=== PATIENT | female | born 1980 | race Caucasian/White ===

== ENCOUNTER 2017-01-07 23:49 | Emergency (ER) | payer OTHER ==
[~2017-01-07] VITALS: Ht 170.2 cm; Wt 129.8 kg
[~2017-01-07 23:49] MED LIST: ANAPROX DS550 M1 PO; AZO STANDARD95 MG PO; BACTRIM DS TAB1 EACH PO; CIPRO500 MG PO; CYSTEX TABLET1 EAC1 PO; FLEXERIL10 MG PO; HYDROCODON-ACE1 EAC7 PO; KEFLEX500 MG PO; MOTRIN IB200 MG PO; MOTRIN800 MG PO; NAPROSYN500 MG PO; NORCO 5/3251 TABLET PO; PERCOCET 5/31 TABLET PO; PYRIDIUM100 MG PO; SYNTHROID50 MCG PO; ULTRAM50 MG PO; ZOFRAN ODT8 MG PO
[2017-01-08] MEDS ORDERED: TOBREX5 ML LEFT EYE (01:10)
[2017-01-08] MEDS ORDERED: AUGMENTIN875 MG PO (01:10)
[2017-01-08] MEDS ORDERED: MOTRIN800 MG PO (01:10)
[2017-01-08] MEDS ORDERED: NORCO 5/3251 TABLET PO (01:10)
[2017-01-08 01:28] VITALS: BP 124/95
== END 2017-01-08 01:29 | disposition home or self-care (01) ==
LOC: EME 23:49
DX: L03.213 Periorbital cellulitis (principal); H10.9 Unspecified conjunctivitis; F17.200 Nicotine dependence, unspecified, uncomplicated
CPT/HCPCS: 99281; 99283

== ENCOUNTER 2017-01-11 22:19 | Inpatient (IN) | payer OTHER ==
[~2017-01-11] VITALS: Ht 170.2 cm; Wt 130.8 kg
[~2017-01-11 22:19] MED LIST changes: +AUGMENTIN875 MG PO; +TOBREX5 ML LEFT EYE
[2017-01-12 01:30] LABS: EOSINOPHIL (%) 2.6 % (0-5); EOSINOPHIL COUNT 0.2 K/uL (0-0.3); HEMATOCRIT 41.9 % (36.0-46.0); IMMATURE GRANULOCYTE (%) 0.6 % (0.0-0.7); INSTRUMENT ABS NEUTROPHIL CT 3.2 K/uL; LYMPHOCYTE COUNT 2.6 K/uL (1.0-2.8); MCH 28.9 PG (29.0-34.0); MCHC 32.5 G/DL (30.0-36.0); MONOCYTE (%) 7.1 % (3-12); MONOCYTE COUNT 0.5 K/uL (0-0.8); NEUTROPHIL COUNT 3.2 K/uL (1.8-6.4); PLATELET COUNT 243 K/uL (156-360); RBC DIS.WIDTH-CV 13.5 % (11.8-14.6); RBC DIS.WIDTH-SD 43.9 % (39-53); RED BLOOD COUNT 4.71 M/uL (3.80-5.20); WHITE BLOOD COUNT 6.5 K/uL (4.1-10.2)
[2017-01-12 01:40] LABS: CHLORIDE 108 mEq/L (99-109); POTASSIUM 3.9 mEq/L (3.7-5.4); SODIUM 141 mEq/L (136-147)
[2017-01-12 01:42] LABS: GLUCOSE 85 mg/dL (70-99)
[2017-01-12 01:43] LABS: ANION GAP 11 MEQ/L (2-14)
[2017-01-12 01:46] LABS: GFR ESTIMATE (CALCULATED) > 59 mL/min/
[2017-01-12 01:47] LABS: UREA NITROGEN (BUN) 13 mg/dL (9-23)
[2017-01-12] MEDS ORDERED: PROZAC20 MG PO (09:39)
[2017-01-12] MEDS ORDERED: CLONIDINE HCL0.1 MG PO (09:39)
[2017-01-12 11:15] VITALS: BP 111/70
[2017-01-12 15:37] VITALS: BP 101/55
[2017-01-12 20:00] VITALS: BP 106/63
[2017-01-12 23:42] VITALS: BP 112/74
[2017-01-13 04:47] VITALS: BP 118/74
[2017-01-13 05:25] LABS: HEMATOCRIT 40.2 % (36.0-46.0); MCH 28.7 PG (29.0-34.0); MCHC 32.1 G/DL (30.0-36.0); MCV 89.5 FL (83-99); MEAN PLAT.VOLUME 9.9 uM^3 (9.5-12.4); PLATELET COUNT 206 K/uL (156-360); RBC DIS.WIDTH-CV 13.4 % (11.8-14.6); RBC DIS.WIDTH-SD 44.2 % (39-53); RED BLOOD COUNT 4.49 M/uL (3.80-5.20); WHITE BLOOD COUNT 5.1 K/uL (4.1-10.2)
[2017-01-13 05:50] LABS: ALKALINE PHOSPHATASE 47 IU/L (3-129); ANION GAP 6 MEQ/L (2-14); CHLORIDE 107 MEQ/L (99-109); GFR ESTIMATE (CALCULATED) > 59 mL/min/; GLUCOSE 89 mg/dL (70-99); POTASSIUM 4.1 MEQ/L (3.7-5.4); SAMPLE HEMOLYSIS CHECK 0; SAMPLE ICTERIC CHECK 0; SAMPLE LIPEMIA CHECK 0; SODIUM 141 MEQ/L (136-147); TOTAL BILIRUBIN 0.3 MG/DL (0.0-1.0); UREA NITROGEN (BUN) 10 mg/dL (9-23)
[2017-01-13 07:25] VITALS: BP 127/85
[2017-01-13 11:21] VITALS: BP 111/76
[2017-01-13 17:42] VITALS: BP 120/76
[2017-01-13 19:52] VITALS: BP 137/71
[2017-01-13 23:15] VITALS: BP 131/81
[2017-01-14 03:40] VITALS: BP 132/80
[2017-01-14 06:48] LABS: HEMATOCRIT 42.1 % (36.0-46.0); MCH 28.7 PG (29.0-34.0); MCHC 32.3 G/DL (30.0-36.0); MCV 88.8 FL (83-99); MEAN PLAT.VOLUME 9.8 uM^3 (9.5-12.4); PLATELET COUNT 202 K/uL (156-360); RBC DIS.WIDTH-CV 13.2 % (11.8-14.6); RED BLOOD COUNT 4.74 M/uL (3.80-5.20); WHITE BLOOD COUNT 4.6 K/uL (4.1-10.2)
[2017-01-14 07:11] LABS: ANION GAP 6 MEQ/L (2-14); CHLORIDE 106 MEQ/L (99-109); GFR ESTIMATE (CALCULATED) > 59 mL/min/; GLUCOSE 85 mg/dL (70-99); MAGNESIUM 2.1 mg/dl (1.3-2.7); POTASSIUM 3.7 MEQ/L (3.7-5.4); SAMPLE HEMOLYSIS CHECK 0; SAMPLE ICTERIC CHECK 0; SAMPLE LIPEMIA CHECK 0; SODIUM 139 MEQ/L (136-147); UREA NITROGEN (BUN) 9 mg/dL (9-23)
[2017-01-14 07:48] VITALS: BP 113/59
[2017-01-14 16:43] VITALS: BP 108/58
[2017-01-14 20:12] VITALS: BP 119/85
[2017-01-15] VITALS: BP 121/85
[2017-01-15 08:05] VITALS: BP 126/73
[2017-01-15] MEDS ORDERED: ENDOCET 5-3251 EACH PO (13:57)
[2017-01-15] MEDS ORDERED: NICOTINE PATCH1 EACH TD (13:57)
[2017-01-15] MEDS ORDERED: LOTEMAX5 ML BOTH EYES (13:57)
[2017-01-15] MEDS ORDERED: TRAMADOL HCL50 MG PO (13:57)
== END 2017-01-15 14:24 | disposition home or self-care (01) | DRG 603 ==
LOC: EME 22:19 → EDOF 01-12 05:33 → ENRESERV 01-12 05:36 → CANRESERV 01-12 06:12 → EDOF 01-12 06:29 → ENRESERV 01-12 06:31 → 4EAST 01-12 11:04 → ENRESERV 01-13 15:50 → 2EAST 01-13 17:31
PROVIDERS: Emergency Medicine; Internal Medicine; Physician Assistant
DX: L03.213 Periorbital cellulitis (principal); I95.9 Hypotension, unspecified; B30.1 Conjunctivitis due to adenovirus; T36.8X5A Adverse effect of other systemic antibiotics, initial encounter; J32.0 Chronic maxillary sinusitis; F32.9 Major depressive disorder, single episode, unspecified; F17.210 Nicotine dependence, cigarettes, uncomplicated; Z87.440 Personal history of urinary (tract) infections; Z87.442 Personal history of urinary calculi
CPT/HCPCS: 70480; 70481; 80048; 80053; 83605; 83735; 85025; 85027; 87040; 99281; 99285; J0295; J0696; J1200; J1650; J1885; J3370; J7030; J7040; J7050

== ENCOUNTER 2017-06-16 03:24 | Emergency (ER) | payer OTHER ==
[~2017-06-16] VITALS: Ht 170.2 cm; Wt 137.1 kg
[~2017-06-16 03:24] MED LIST changes: +AFRIN,GENASAL D15 ML BOTH NARES; +CLONIDINE HCL0.1 MG PO; +ENDOCET 5-3251 EACH PO; +LOTEMAX5 ML BOTH EYES; +NICOTINE PATCH1 EACH TD; +PROZAC20 MG PO; +TESSALON PERLE100 MG PO; +TRAMADOL HCL50 MG PO
[2017-06-16 05:22] VITALS: BP 113/80
== END 2017-06-16 05:24 ==
LOC: EDBD 03:24 → EME 03:24
DX: T40.1X1A Poisoning by heroin, accidental (unintentional), initial encounter (principal); R11.0 Nausea; R51 Headache
CPT/HCPCS: 99281; 99285; J2310

== ENCOUNTER 2017-10-19 16:08 | Emergency (ER) | payer OTHER ==
[~2017-10-19] VITALS: Ht 170.2 cm; Wt 118.0 kg
[2017-10-19 17:10] LABS: HEMOGLOBIN 13.2 G/DL (11.9-15.5); MCH 27.8 PG (29.0-34.0); MCV 84.4 FL (83-99); PLATELET COUNT 260 K/uL (156-360); RBC DIS.WIDTH-CV 14.4 % (11.8-14.6); RBC DIS.WIDTH-SD 43.8 % (39-53); RED BLOOD COUNT 4.74 M/uL (3.80-5.20); WHITE BLOOD COUNT 9.5 K/uL (4.1-10.2)
[2017-10-19 17:22] LABS: ALBUMIN 4.2 g/dL (3.2-4.8); CHLORIDE 106 mEq/L (99-109); POTASSIUM 4.4 mEq/L (3.7-5.4); SODIUM 142 mEq/L (136-147)
[2017-10-19 17:25] LABS: GLUCOSE 85 mg/dL (70-99); TOTAL PROTEIN 7.1 g/dL (6.4-8.3)
[2017-10-19 17:27] LABS: TOTAL BILIRUBIN 0.5 mg/dL (0.0-1.0)
[2017-10-19 17:28] LABS: ALKALINE PHOSPHATASE 63 IU/L (3-129); CREATININE 0.8 mg/dL (0.6-1.3); GFR ESTIMATE (CALCULATED) > 59 mL/min/
[2017-10-19 17:29] LABS: UREA NITROGEN (BUN) 11 mg/dL (9-23)
[2017-10-19 17:30] LABS: AST (GOT) 18 IU/L (2-34)
[2017-10-19 17:31] LABS: ALT (GPT) 21 IU/L (3-49)
[2017-10-19 17:41] LABS: QUANTITATIVE HCG < 4.0 MIU/ML
[2017-10-19 19:39] LABS: APPEARANCE SL.HAZY ((CLEAR)); BILIRUBIN NEGATIVE; BLOOD MODERATE; COLOR YELLOW ((YELLOW)); GLUCOSE (STRIP) NEGATIVE; KETONES 5; LEUKOCYTES NEGATIVE; NITRITE NEGATIVE; PROTEIN (STRIP) NEGATIVE; SPECIFIC GRAVITY 1.016 (1.000-1.030); UROBILINOGEN 0.2 MG/DL (0.2-1.0)
[2017-10-19 20:10] LABS: BACTERIA RARE /HPF; EPITHELIAL CELLS 2+ /HPF; MUCUS 4+ /LPF; RED BLOOD CELLS 15-20 /HPF (0-5); UCUL ADDED? NO; WHITE BLOOD CELLS 0-5 /HPF (0-5)
[2017-10-19] MEDS ORDERED: ZOFRAN ODT4 MG PO (20:23)
[2017-10-19 20:52] VITALS: BP 132/76
== END 2017-10-19 20:53 | disposition home or self-care (01) ==
LOC: EME 16:08
PROVIDERS: Physician Assistant Medical
DX: R10.32 Left lower quadrant pain (principal); F17.200 Nicotine dependence, unspecified, uncomplicated; Z88.1 Allergy status to other antibiotic agents; Z88.8 Allergy status to other drugs, medicaments and biological substances
CPT/HCPCS: 74176; 80053; 81003; 84702; 85027; 99281; 99284; J1885; J2405; J7030